=== PATIENT | female | born 1965 | race Caucasian/White ===

== ENCOUNTER → 2019-05-10 | Outpatient (CLI) | payer OTHER | LOC: LAB SHORT 17:15 → LAB 17:15 | DX: D22.72 Melanocytic nevi of left lower limb, including hip (principal); D48.5 Neoplasm of uncertain behavior of skin; L08.9 Local infection of the skin and subcutaneous tissue, unspecified; L72.0 Epidermal cyst | CPT/HCPCS: 87070; 87205 ==